=== PATIENT | female | born 1970 | race Caucasian/White ===

== ENCOUNTER → 2016-11-03 | Outpatient (CLI) | payer BC ==
[~2016-11-03] VITALS: Ht 170.2 cm; Wt 103.6 kg
[~2016-11-03] MED LIST: CELEXA 20MG20 MG/TAB PO; D3-5050000 IU PO; DIFLUCAN150 MG PO; FLINTSTONES COM1 CT1 PO; MOBIC15 MG PO; PHENDIMETRAZIN105 MG PO; PRIL40 PO; THRIVE VITAMINS; ZOCOR 10MG10 MG PO
[2016-11-03 10:04] VITALS: BP 137/73; PULSE 76
== END ==
LOC: LIGHT 10:00
DX: Z98.84 Bariatric surgery status (principal); E78.4 Other hyperlipidemia; E66.8 Other obesity; Z68.35 Body mass index [BMI] 35.0-35.9, adult; M15.8 Other polyosteoarthritis

== ENCOUNTER → 2016-12-01 | Outpatient (CLI) | payer BC ==
[~2016-12-01] VITALS: Ht 170.2 cm; Wt 100.7 kg
[2016-12-01 15:13] VITALS: BP 130/60; PULSE 76
== END ==
LOC: LIGHT 15:10
DX: E78.4 Other hyperlipidemia (principal); M15.8 Other polyosteoarthritis; E66.8 Other obesity; Z68.34 Body mass index [BMI] 34.0-34.9, adult; Z98.84 Bariatric surgery status

== ENCOUNTER → 2017-02-09 | Outpatient (CLI) | payer BC ==
[~2017-02-09] VITALS: Ht 170.2 cm; Wt 100.5 kg
[2017-02-09 14:06] VITALS: BP 139/86; PULSE 93
== END ==
LOC: LIGHT 01-12 13:02
DX: Z98.84 Bariatric surgery status (principal); E78.5 Hyperlipidemia, unspecified; E66.9 Obesity, unspecified; Z68.34 Body mass index [BMI] 34.0-34.9, adult; Z71.3 Dietary counseling and surveillance; M15.9 Polyosteoarthritis, unspecified

== ENCOUNTER → 2017-04-06 | Outpatient (CLI) | payer BC ==
[~2017-04-06] VITALS: Ht 170.2 cm; Wt 102.5 kg
[2017-04-06 13:10] VITALS: BP 148/66; PULSE 96
== END ==
LOC: LIGHT 10:20
DX: E66.9 Obesity, unspecified (principal); E78.5 Hyperlipidemia, unspecified; M15.9 Polyosteoarthritis, unspecified; Z68.35 Body mass index [BMI] 35.0-35.9, adult; Z98.84 Bariatric surgery status; Z98.51 Tubal ligation status; Z90.49 Acquired absence of other specified parts of digestive tract

== ENCOUNTER → 2017-05-04 | Outpatient (CLI) | payer BC ==
[~2017-05-04] VITALS: Ht 170.2 cm; Wt 101.6 kg
[2017-05-04 11:04] VITALS: BP 146/80; PULSE 72
== END ==
LOC: LIGHT 10:17
DX: Z98.84 Bariatric surgery status (principal); E78.5 Hyperlipidemia, unspecified; E66.9 Obesity, unspecified; Z68.34 Body mass index [BMI] 34.0-34.9, adult; Z71.3 Dietary counseling and surveillance; M15.9 Polyosteoarthritis, unspecified

== ENCOUNTER → 2017-06-29 | Outpatient (CLI) | payer BC ==
[~2017-06-29] VITALS: Ht 170.2 cm; Wt 102.5 kg
[2017-06-29 10:37] VITALS: BP 138/78; PULSE 56
== END ==
LOC: LIGHT 09:47
DX: Z98.84 Bariatric surgery status (principal); E78.5 Hyperlipidemia, unspecified; E66.9 Obesity, unspecified; Z68.35 Body mass index [BMI] 35.0-35.9, adult; Z71.3 Dietary counseling and surveillance; M15.9 Polyosteoarthritis, unspecified